=== PATIENT | female | born 1990 | race Two or more races ===

== ENCOUNTER 2016-07-04 16:05 | Emergency (ER) | payer OTHER ==
[2016-07-04 16:12] VITALS: BP 130/88; PULSE 84; TEMP 98.6; BMI 37.1
[2016-07-04] MEDS ORDERED: IBUPROFEN 600 MG TABLET (FP) PO ONE (16:45)
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
== END 2016-07-04 16:54 | disposition home or self-care (01) ==
LOC: JERFT 16:05
DX: M25.532 Pain in left wrist (principal); M25.531 Pain in right wrist; V43.52XA Car driver injured in collision with other type car in traffic accident, initial encounter; Y92.412 Parkway as the place of occurrence of the external cause; W22.11XA Striking against or struck by driver side automobile airbag, initial encounter; Y93.89 Activity, other specified
CPT/HCPCS: 99281-25